=== PATIENT | male | born 1990 | race Caucasian/White ===

== ENCOUNTER 2023-01-15 11:29 | Emergency (ER) | payer MEDICAID, SELFPAY ==
[2023-01-15 11:30] VITALS: BP 137/85; PULSE 85; RESP 16; TEMP 36.6; O2SAT 100; BMI 23.0
--- NOTE | 2023-01-15 11:55 | EX.ED.DYSGE1 ---
HPI History of Present Illness Chief Complaint: Rash Informant: patient Narrative Narrative: 32-year-old male presenting to the emergency room with chief complaint of poison radha. The patient states that he was working cleaning out his front lawn over the weekend and began to have the rash 2 days ago. He has tried some calamine lotion. He called off work as he works at the [employer]. He notes that this morning started to feel some scratchiness in his throat became concerned so he wanted to be evaluated. He denies any wheezing or difficulty handing secretions. PFSH PFSH Medical History no medical history Home Medications prednisone 20 mg tablet See Rx Instructions .Route .COMPLEX #24 TABLETS 01/15/23 [Rx Last Taken Unknown] Allergy/AdvReac Type Severity Reaction Status Date / Time Penicillins Allergy Anaphylaxis Verified 01/15/23 11:32 Surgical History no surgical history Social History Smoking Status: Never smoker ROS ROS ED Constitutional Constitutional ED: Denies chills, fever(s) or weight loss Eyes Eyes: Denies change in vision or diplopia ENT ENT ED: Reports sore throat; Denies ear pain or rhinorrhea Cardiovascular Cardiovascular: Denies chest pain, orthopnea, palpitations or racing heartbeat Respiratory/Chest Respiratory/Chest: Denies cough, dyspnea or orthopnea Gastrointestinal Gastrointestinal: Denies abdominal pain, diarrhea, nausea or vomiting Genitourinary Genitourinary ED: Denies dysuria, hematuria or urinary frequency Musculoskeletal Musculoskeletal: Denies arthralgias or myalgias Integumentary Reports rash; Denies abscess Neurologic Neurologic: Denies headache(s) or weakness Psychiatric Psychiatric: Denies anxiety, depression, suicidal ideation or suicidal thoughts Endocrine Endocrinology: Denies polydipsia, polyphagia or polyuria Allergic/Immunologic Allergic/Immunologic ED: Denies mouth swelling, tongue swelling or urticaria EXAM Physical Exam Const Vital Signs: 01/15/23 11:30 Temperature 98 F Temperature Source Temporal Pulse Rate 85 Respiratory Rate 16 Blood Pressure 137/85 H Blood Pressure Mean 102 Pulse Ox 100 Oxygen Delivery Method Room Air Positive well nourished and well developed General Appearance ED: well developed HEENT Reports normocephalic, head/scalp atraumatic and moist mucous membranes Eyes PERRL and EOMs intact bilaterally Neck no lymphadenopathy, supple and no JVD Resp normal respiratory effort and clear to auscultation bilaterally Cardio regular rate, regular rhythm and no murmurs GI normal to inspection, nondistended, normoactive bowel sounds and non-tender Palpation: soft Back/Spine no CVA tenderness and normal ROM Extremity normal to inspection General Extremety ED: Negative for edema General Extremity: Negative for edema Neuro oriented x3 and CN's II-XII intact bilaterally Sensorium / Orientation: alert Motor Exam: strength 5/5 throughout Psych mental status grossly normal Mood & Affect: Negative for depressed or tearful Skin Skin Narrative: There is a superficial abrasion to the left lower quadrant of his abdomen. There is a rash consistent with Dixie dermatitis on the bilateral forearms and face. No evidence of secondary infection MDM MDM MDM Narrative Medical decision making narrative: Patient will be started on prednisone for 12 days and a tapering dose. Calamine lotion continued as needed. Benadryl as needed. I can write him for light duty at work due to the heavy sweating that he incurs. Discharge Plan Triage Chief Complaint: Rash ED Provider: Wei Haider Dx/Rx/DC Orders Clinical Impression: Contact dermatitis due to poison radha Instructions: ED Poison Radha Rash Prescriptions: New prednisone 20 mg tablet See Rx Instructions .ROUTE .COMPLEX Qty: 24 0RF Rx Instructions: 3 tabs p.o. daily x4 days then 2 tabs p.o. daily x4 days then 1 tab p.o. daily x4 days Primary Care Provider: NOT,DEFINED Referrals: NOT,DEFINED [Primary Care Provider] - Disposition Disposition: Home, Self Care
== END 2023-01-15 12:07 | disposition home or self-care (01) ==
LOC: ED 12:05
PROVIDERS: Emergency Provider Emergency Medicine; Visit Provider Emergency Medicine
DX: L23.7 Allergic contact dermatitis due to plants, except food (principal)
CPT/HCPCS: 99282